=== PATIENT | male | born 1990 | race Hispanic/Latino ===

== ENCOUNTER 2024-03-12 20:32 | Emergency (ER) | payer BC ==
[~2024-03-12] VITALS: Ht 172.7 cm; Wt 111.1 kg
[~2024-03-12 20:32] MED LIST: ATOR40TA71 PO; LISI2.5T13 PO; METF-446 PO; PIOG30TA70 PO
[2024-03-12 20:44] VITALS: BP 104/76; PULSE 97; RESP 18; TEMP 98.1; O2SAT 97
[2024-03-12] MEDS: ketOROlac 60 MG VIAL (30MG/ML) IM ONE (21:03)
[2024-03-12] MEDS ORDERED: IBUP-2070 PO (22:46)
[2024-03-12] MEDS ORDERED: CYCL10TA16 PO (22:46)
== END 2024-03-12 22:56 | disposition home or self-care (01) ==
LOC: EDH 20:32
DX: S86.112A Strain of other muscle(s) and tendon(s) of posterior muscle group at lower leg level, left leg, initial encounter (principal); E11.9 Type 2 diabetes mellitus without complications; Z79.899 Other long term (current) drug therapy; Z90.49 Acquired absence of other specified parts of digestive tract; X58.XXXA Exposure to other specified factors, initial encounter; Y93.89 Activity, other specified; Y92.89 Other specified places as the place of occurrence of the external cause; Y99.8 Other external cause status
CPT/HCPCS: 99284; 73610; 73590; 96372; J1885